=== PATIENT | male | born 1955 | race Caucasian/White ===

== ENCOUNTER 2018-05-28 12:26 | Day surgery (SDC) | payer OTHER ==
[2018-05-24 11:42] VITALS: BMI 22.8
[~2018-05-28 12:26] MED LIST: LACTATED RINGERS 1,000 ML IV SCH; LIDOCAINE 1% 20 ML VIAL (10MG/ML) FOR IV START INTRADERMA PRN; MIDAZOLAM 2 MG/2 ML VIAL IV PRN
[2018-05-28 13:09] VITALS: RESP 16; TEMP 98.6
[2018-05-28] MEDS ORDERED: fentaNYL (PF) 50 MCG/ML 2 ML AMP ONE (14:15)
[2018-05-28] MEDS ORDERED: PROPOFOL 10 MG/ML 20 ML VIAL IV ONE (14:15)
[2018-05-28] MEDS ORDERED: MIDAZOLAM 2 MG/2 ML VIAL ONE (14:15)
--- NOTE | 2018-05-28 14:44 | P.PCN ---
Date of Procedure: 05/28/18 Procedure(s) Performed: Total colonoscopy. Preoperative diagnosis: Screening for neoplasia. Postoperative diagnosis: Sigmoid diverticulosis with no evidence of acute diverticulitis, strictures, polyps or cancer. Preparation: HalfLytely prep. Sedation: Was provided by anesthesia. Brief clinical history: The patient is 63-year-old male who is scheduled for this evaluation for screening for neoplasia. His prior exam was at age 54 or 55. The patient has no abdominal complaints, bleeding or anemia. Procedure: With the patient on his left lateral decubitus position and after informed consent and adequate sedation, the anal area was inspected and it did not show any fissures or fistulas. There were no masses felt on digital rectal examination. The Olympus CFQ 160L video colonoscope was then inserted in the rectum in the usual fashion and advanced to the cecum. Unfortunately, the preparation was less than ideal with thick fecal secretions and debris noted mostly on the right side and cecum. I tried to wash and suction the best we could. There were multiple diverticular orifices seen scattered in the sigmoid but I saw no evidence of acute diverticulitis or strictures. No large polyps or tumors were seen, although, because of his prep, small polyps and superficial pathology could have been missed. I retroflexed the endoscope in the rectum before the endoscope was withdrawn. The patient tolerated the procedure well. Plan: The patient was reassured. Discussed dietary measures. He will follow up with you as planned and I recommended repeat exam in 5 years because of his less than ideal preparation today.
[2018-05-28 15:10] VITALS: BP 131/80; PULSE 60
== END 2018-05-28 15:27 | disposition home or self-care (01) ==
LOC: ORWHC2ENDO 12:26
DX: Z12.11 Encounter for screening for malignant neoplasm of colon (principal); K57.30 Diverticulosis of large intestine without perforation or abscess without bleeding; E78.5 Hyperlipidemia, unspecified; N20.0 Calculus of kidney; Z79.82 Long term (current) use of aspirin; Z79.899 Other long term (current) drug therapy
CPT/HCPCS: J2250; J3010; J2704; G0121; 45378

== ENCOUNTER → 2018-09-16 | Outpatient (CLI) | payer OTHER ==
--- NOTE | 2018-09-16 22:51 | CT ---
EXAMINATION TYPE: CT chest wo con DATE OF EXAM: 09/16/2018 COMPARISON: Outside chest x-ray September 03, 2018 HISTORY: Abnormal Lung Exam , No Symptoms. Hi Res Chest Protocol CT DLP: 609.4 mGycm. Automated Exposure Control for Dose Reduction was Utilized. TECHNIQUE: CT scan of the thorax is performed without IV contrast. High resolution protocol with 1 m m sequences obtained at 10 mm intervals in prone and supine technique. FINDINGS: LUNGS: There is peripheral reticulation and fibrosis seen bilaterally most prominent in the lower sharita gs. Some beginning honeycombing in the bases versus present. Mild central bronchiectasis is noted star aterally. No pleural effusion or pneumothorax is seen. MEDIASTINUM: Lack of IV contrast is noted to limit evaluation for mediastinal and especially hilar ad enopathy. There are no definitive greater than 1 cm hilar or mediastinal lymph nodes. No significan t pericardial effusion is seen. Heart size is within normal limits. Coronary artery calcification is present which is noted marker for coronary artery disease. Enlarged left pulmonary artery is present. OTHER: 1.5 cm hypodense lesion lateral segment left hepatic lobe axial image 25 is presumed simple th in-walled cyst. IMPRESSION: Moderate peripheral fibrotic changes most prominent in the lower lungs, consider IPF.
== END | disposition home or self-care (01) ==
LOC: RADCTMAIN 15:22
PROVIDERS: ATTEND Internal Medicine Critical Care Medicine
DX: J84.10 Pulmonary fibrosis, unspecified (principal)
CPT/HCPCS: 71250

== ENCOUNTER → 2018-12-26 | Outpatient (CLI) | payer OTHER ==
--- NOTE | 2018-12-26 08:41 | XR ---
EXAMINATION TYPE: XR chest 2V DATE OF EXAM: 12/26/2018 COMPARISON: Chest CT September 16, 2018. Chest x-ray September 03, 2018. HISTORY: Chronic idiopathic pulmonary fibrosis. TECHNIQUE: Frontal and lateral views of the chest are obtained. FINDINGS: There is persistent reticular interstitial fibrotic changes along the periphery most promin ent in the lung bases. There is no focal air space opacity, pleural effusion, or pneumothorax seen. The cardiac silhouette size is within normal limits. The osseous structures are intact. IMPRESSION: Persistent chronic parenchymal changes or peripheral fibrosis most prominent in the base s. No acute pulmonary process. No obvious progression from older studies on x-ray.
== END | disposition home or self-care (01) ==
LOC: RADXRMAIN 08:08
PROVIDERS: ATTEND Internal Medicine Pulmonary Disease
DX: J84.112 Idiopathic pulmonary fibrosis (principal); J67.9 Hypersensitivity pneumonitis due to unspecified organic dust; E78.5 Hyperlipidemia, unspecified
CPT/HCPCS: 71046

== ENCOUNTER → 2021-12-07 | Outpatient (CLI) | payer OTHER ==
[~2021-12-07] MED LIST changes: -LACTATED RINGERS 1,000 ML IV SCH; -LIDOCAINE 1% 20 ML VIAL (10MG/ML) FOR IV START INTRADERMA PRN; -MIDAZOLAM 2 MG/2 ML VIAL IV PRN; +TIXAGEVIMAB/CILGAVIMAB (EUA) 300 MG/3 ML COMBO.PKG IM ONE
[2021-12-07 12:15] VITALS: RESP 16; TEMP 98.4
[2021-12-07 12:58] VITALS: BP 120/80; PULSE 78
== END ==
LOC: PROCWHC3 11:43
PROVIDERS: ATTEND Internal Medicine Pulmonary Disease
DX: Z94.2 Lung transplant status (principal); N18.9 Chronic kidney disease, unspecified; D72.819 Decreased white blood cell count, unspecified; K21.9 Gastro-esophageal reflux disease without esophagitis; U07.1 COVID-19; E78.5 Hyperlipidemia, unspecified; J32.9 Chronic sinusitis, unspecified; J84.112 Idiopathic pulmonary fibrosis; I48.91 Unspecified atrial fibrillation; E78.9 Disorder of lipoprotein metabolism, unspecified; D62 Acute posthemorrhagic anemia; E09.65 Drug or chemical induced diabetes mellitus with hyperglycemia; T86.819 Unspecified complication of lung transplant
CPT/HCPCS: 96372; Q0220